=== PATIENT | male | born 1985 | race Caucasian/White ===

== ENCOUNTER 2022-02-04 15:23 | Emergency (ER) | payer OTHER, SELFPAY ==
[2022-02-04 15:25] VITALS: BP 149/93; PULSE 96; RESP 16; TEMP 36.6; O2SAT 97; BMI 40.6
--- NOTE | 2022-02-04 16:20 | ED.GENADULT ---
HPI - General Adult General Chief complaint: Back Pain/Injury Stated complaint: Sciatic Pain Time Seen by Provider: 02/04/22 16:15 Source: patient Mode of arrival: ambulatory Limitations: no limitations History of Present Illness HPI narrative: 36 yold malel presents to the ED for right sided sciatica exacerbation. Patient states right buttck pain radiating down right leg. Patient denies any leg swelling, redness, calf pain, fever, chills, recent trauma, or heavy lifting. patient states pmh of sciatica. patient states no improvemnt with diclofenac. patent denies any urinary/bowel incontincenc. Patient denies any dysuria, hematuria, flank pain, fever, chills, abdominal pain, nausea, vomiting, testicular pain, penile lesions, or penile discharge Related Data Previous Rx's Medication Instructions Recorded lidocaine 4 % topical patch 1 patch topical DAILY PRN pain #10 02/04/22 ea oxycodone 5 mg capsule 5 mg PO Q8H PRN pain 3 days #9 caps 02/04/22 prednisone 20 mg tablet 40 mg PO DAILY 5 days #10 tabs 02/04/22 Allergies Allergy/AdvReac Type Severity Reaction Status Date / Time No Known Allergies Allergy Verified 02/04/22 15:29 Review of Systems Review of Systems: sciatica pain Yes all other systems are reviewed and are negative PMFSH Social History Social History Advance Directives: No Advance Directives Information Provided: No Physical Exam ED Vital Signs: Vital Signs - 24 hr 02/04/22 15:25 Temperature 97.9 F Pulse Rate 96 Respiratory Rate 16 Blood Pressure 149/93 H Pulse Oximetry 97 Oxygen Delivery Method Room Air BMI result Body Mass Index 40.6 Const General: cooperative, healthy appearing, comfortable, no acute distress, well developed, alert and awake Orientation/consciousness: oriented to person, oriented to place, oriented to time and patient oriented x3 HENMT Head: Yes normal to inspection, Yes No palpable skull fracture present, Yes normocephalic, Yes atraumatic and No abrasion Eyes General: appearance normal, both eyes and all related structures Neck Neck: Yes normal visual inspection, Yes full ROM, Yes no lymphadenopathy, Yes no meningeal signs, Yes trachea midline, Yes supple, No anterior neck swelling and No tender Chest Chest palpation & inspection: normal inspection of the chest and normal palpation of entire chest wall Resp Effort & Inspection: normal respiratory effort and able to speak in complete sentences Auscultation: clear to auscultation bilaterally Cardio Jugular venous distension: no JVD Heart sounds: S1 normal heart sound present and S2 normal heart sound present GI Inspection: Yes normal to inspection and No abdominal wall ecchymosis Palpation (GI): Soft to palpation, not firm, nontender, no guarding and not rigid General: No CVA tenderness and Yes no CVA tenderness Back/Spine/Pelvis Other: positive for Right buttock sciatica tenderness radiating down right leg. Positive for pain when lifting right leg. right buttock negative for erythema, swelling, pus discharge Back: no CVA tenderness, No CVA tenderness and No back tenderness Skin General skin exam: no rashes or lesions noted and elasticity normal Neuro General: oriented to person, oriented to place, oriented to time, patient oriented x3, gait normal, tone normal, moves all extremities and no meningeal signs Cranial nerves: Yes CN's II-XII intact bilaterally Psych Appearance: grossly normal, well kempt and not disheveled Course Course Course Narrative: toradol and prednisone ordered Reevaluation(s) Reevaluation #1: Patient feels better after receving pain meds. Patietn not in distress. No spine tenderness. no imaging indicated. no risk factors for epidural abscess or cauda equina syndrome. NOt suspecting epidural abscess or cauda equina sydnrome Discharge Plan Discharge Clinical Impression: Sciatica Patient Disposition: Home, Self-Care Instructions: Sciatica (ED) Additional Instructions: Return to the ED immediately for any urinary/bowel incontnence, abdominal pain, nuasea, vomitting, worsening back pain, fever, chills, or any other concerning sytmpoms,. Please follow up with PCP. Prescriptions: New prednisone 20 mg tablet 40 mg PO DAILY 5 Days Qty: 10 0RF oxycodone 5 mg capsule 5 mg PO Q8H PRN (Reason: pain) 3 Days Qty: 9 0RF Rx Instructions: Partial Fill upon patient request. lidocaine 4 % adhesive patch,medicated 1 patch topical DAILY PRN (Reason: pain) Qty: 10 0RF Rx Instructions: placed on painful area Stand Alone Forms: Work/School Release Interventions: ED Discharge Assessment Last Done: 02/04/22 17:53 Discharge Date/Time: 02/04/22 17:53 Print Language: [place]
[2022-02-04] MEDS: predniSONE 20 MG TABLET 60 MG PO (16:47)
[2022-02-04] MEDS: Ketorolac Tromethamine 30 MG/ML VIAL IM (16:47)
== END 2022-02-04 17:53 | disposition home or self-care (01) ==
PROVIDERS: Emergency Provider Emergency Medicine
DX: M54.31 Sciatica, right side (principal)
CPT/HCPCS: 96372; 99283; 99284; J1885

== ENCOUNTER 2022-07-11 18:06 | Emergency (ER) | payer OTHER, SELFPAY ==
--- NOTE | 2022-07-11 | ECG_ITS ---
Test Reason : CHEST PAIN Blood Pressure : / mmHG Vent. Rate : 087 BPM Atrial Rate : 087 BPM P-R Int : 154 ms QRS Dur : 080 ms QT Int : 348 ms P-R-T Axes : 040 000 008 degrees QTc Int : 418 ms Normal sinus rhythm with sinus arrhythmia Minimal voltage criteria for LVH, may be normal variant ( R in aVL ) Nonspecific T wave abnormality Abnormal ECG No previous ECGs available Referred By: Generic ED Physician Electronically Signed By:EMANI SANCHEZ
--- NOTE | ~2022-07-11 | XR_ITS ---
EXAMINATION: XR CHEST CLINICAL INFORMATION: Chest pain COMPARISON: None TECHNIQUE: 2 views of the chest were obtained. FINDINGS: No significant abnormality is noted involving the heart, lungs, mediastinum, bony thorax or soft tissues. XR/XR chest 2V IMPRESSION: Unremarkable examination.
[2022-07-11 19:15] VITALS: BP 155/93; PULSE 92; RESP 16; TEMP 37; O2SAT 99; BMI 36.9
--- NOTE | 2022-07-11 19:16 | ED_ITS ---
HPI - Chest Pain General Chief Complaint: Chest Pain <Rica Duke NP - Last Filed: 07/11/22 19:20> Stated Complaint: Chest Pain/ uncontrolled blood pressure <Rica Duke NP - Last Filed: 07/11/22 19:20> Time Seen by Provider: 07/11/22 19:47 <Rica Duke NP - Last Filed: 07/11/22 19:20> Source: patient <Joshua Diamond MD - Last Filed: 07/11/22 21:08> Mode of arrival: ambulatory <Joshua Diamond MD - Last Filed: 07/11/22 21:08> Limitations: no limitations <Joshua Diamond MD - Last Filed: 07/11/22 21:08> History of Present Illness HPI narrative: Patient has stable hypertension with multiple complaints going on for last few weeks or eats about blood pressure fluctuating describe dizziness is nonspecific no lightheadedness no spinning movement whole-body complaints has appointment with PCP tomorrow PCP increased the dose of losartan from 50 to 100 mg 4 weeks ago denies any anxiety no sleep apnea feels palpitations sometimes <Joshua Diamond MD - Last Filed: 07/11/22 21:08> Related Data Home Medications: Previous Rx's Medication Instructions Recorded lidocaine 4 % topical patch 1 patch topical DAILY PRN pain #10 02/04/22 ea oxycodone 5 mg capsule 5 mg PO Q8H PRN pain 3 days #9 caps 02/04/22 prednisone 20 mg tablet 40 mg PO DAILY 5 days #10 tabs 02/04/22 <Rica Duke NP - Last Filed: 07/11/22 19:20> Allergies/Adverse Reactions: Allergies Allergy/AdvReac Type Severity Reaction Status Date / Time No Known Allergies Allergy Verified 02/04/22 15:29 <Rica Duke NP - Last Filed: 07/11/22 19:20> Review of Systems Review of Systems: Yes all other systems are reviewed and are negative <Joshua Diamond MD - Last Filed: 07/11/22 21:08> PMF Social History Social History: Social History Advance Directives: No Advance Directives Information Provided: No <Rica Duke NP - Last Filed: 07/11/22 19:20> Physical Exam Vital Signs: Vital Signs: Last Vital Signs Temp 98.6 F 07/11/22 19:15 Pulse 92 07/11/22 20:37 Resp 16 07/11/22 20:37 BP 147/82 H 07/11/22 20:37 Pulse Ox 98 07/11/22 20:37 O2 Del Method 07/11/22 20:37 BMI result Body Mass Index 36.9 <Rica Duke NP - Last Filed: 07/11/22 19:20> Vital Signs: Last Vital Signs Temp 98.6 F 07/11/22 19:15 Pulse 92 07/11/22 20:37 Resp 16 07/11/22 20:37 BP 147/82 H 07/11/22 20:37 Pulse Ox 98 07/11/22 20:37 O2 Del Method 07/11/22 20:37 BMI result Body Mass Index 36.9 <Joshua Diamond MD - Last Filed: 07/11/22 21:08> Appearance: Alert. Oriented X3. No acute distress. Anxious Eyes: No pallor or icterus ENT: Pharynx normal. Oral Mucosa moist Neck: Normal inspection. Neck supple. CVS: Normal heart rate and rhythm. Pulses normal. No murmur or rub Respiratory: No respiratory distress. Equal air entry bilateral, no wheezing/rales/rhonchi Abdomen: Soft and nontender. Bowel sounds are present, no mass palpable, no CVA tenderness Skin: Skin warm and dry. Normal skin color. Normal skin turgor. Extremities: No lower extremity edema. No calf tenderness Neuro: Oriented X 3. No motor deficit. No sensory deficit.No cerebellar signs , cranial nerves II-XII intact <Joshua Diamond MD - Last Filed: 07/11/22 21:08> Course Course Course Narrative: This is rapid medical exam. Deferred HPI, ROS, PE to primary provider. 37 yo male with history of HTN here with complaints of intermittent numbness with radiation to arm, chest pain, dizzy episodes 4 times in the last 2 weeks. Will check EKG, CXR, labs. BP 155/93 in triage. VSS. <Rica Duke NP - Last Filed: 07/11/22 19:20> Medical Decision Making Medical Decision Making MDM Narrative: Patient with multiple nonspecific complaints orthostatic blood pressure was normal has appointment to see PCP tomorrow will do basic labs and advised to follow with PCP <Joshua Diamond MD - Last Filed: 07/11/22 21:08> Lab Data Result Diagrams: : 07/11/22 19:56 07/11/22 19:56 <Rica Duke NP - Last Filed: 07/11/22 19:20> Labs: Lab Results 07/11/22 07/11/22 07/11/22 Range/Units 19:56 19:56 19:56 WBC 12.1 H (4.8-10.8) X10*3/uL RBC 4.94 (4.60-5.80) X10*6/uL Hgb 13.3 L (14.0-18.0) g/dl Hct 37.9 L (42.0-52.0) % MCV 76.7 L (80.0-98.0) fL MCH 26.9 L (27.0-33.0) pg MCHC 35.1 (31.0-36.0) g/dl RDW 12.6 (11.0-16.0) % Plt Count 285 (160-400) X10*3/uL MPV 8.8 L (9.4-12.4) fL Immature Gran % (Auto) 0.2 (0.0-0.4) % Neut % (Auto) 61.0 (45-73) % Lymph % (Auto) 32.7 (20-40) % [place] % (Auto) 4.5 (2-11) % Eos % (Auto) 1.3 (0-4) % Baso % (Auto) 0.3 (0-2) % Lymph # (Auto) 4.0 (1.2-4.9) X10*3/uL [place] # (Auto) 0.5 (0.1-1.2) X10*3/uL Eos # (Auto) 0.2 (0.0-0.4) X10*3/uL Baso # (Auto) 0.0 (0.0-0.2) X10*3/uL Abs Immat Gran (auto) 0.03 (0.00-0.03) X10*3/uL Absolute Neuts (auto) 7.4 (2.0-8.3) x10*3/uL Absolute Nucleated RBC 0.000 (0.0-0.012) X10*3/uL Nucleated RBC % (auto) 0.0 (0.0-0.2) /100WBC Sodium 141 (135-145) mmol/L Potassium 4.1 (3.3-5.1) mmol/L Chloride 103 (96-108) mmol/L Carbon Dioxide 25 (22-29) mmol/L Anion Gap 17 (12-20) BUN 13 (9-16) mg/dL Creatinine 0.82 (0.5-1.4) mg/dL Estim Creat Clear Calc 154.6 Estimated GFR > 60 Random Glucose 201 H (60-115) mg/dL Calcium 9.8 (8.4-10.2) mg/dL Total Bilirubin 1.0 (0.0-1.0) mg/dL Direct Bilirubin 0.3 (0.0-0.5) mg/dL AST 25 (5-37) U/L ALT 41 H (0-40) U/L Alkaline Phosphatase 75 (39-117) U/L Troponin I High Sens < 3.5 (<3.5-35.0) ng/L Total Protein 7.5 (6.5-8.0) g/dL Albumin 4.6 (3.5-5.0) g/dL COVID-19 (FRANKIE) (Negative) COVID-19 Clin Com 07/11/22 Range/Units 19:56 WBC (4.8-10.8) X10*3/uL RBC (4.60-5.80) X10*6/uL Hgb (14.0-18.0) g/dl Hct (42.0-52.0) % MCV (80.0-98.0) fL MCH (27.0-33.0) pg MCHC (31.0-36.0) g/dl RDW (11.0-16.0) % Plt Count (160-400) X10*3/uL MPV (9.4-12.4) fL Immature Gran % (Auto) (0.0-0.4) % Neut % (Auto) (45-73) % Lymph % (Auto) (20-40) % [place] % (Auto) (2-11) % Eos % (Auto) (0-4) % Baso % (Auto) (0-2) % Lymph # (Auto) (1.2-4.9) X10*3/uL [place] # (Auto) (0.1-1.2) X10*3/uL Eos # (Auto) (0.0-0.4) X10*3/uL Baso # (Auto) (0.0-0.2) X10*3/uL Abs Immat Gran (auto) (0.00-0.03) X10*3/uL Absolute Neuts (auto) (2.0-8.3) x10*3/uL Absolute Nucleated RBC (0.0-0.012) X10*3/uL Nucleated RBC % (auto) (0.0-0.2) /100WBC Sodium (135-145) mmol/L Potassium (3.3-5.1) mmol/L Chloride (96-108) mmol/L Carbon Dioxide (22-29) mmol/L Anion Gap (12-20) BUN (9-16) mg/dL Creatinine (0.5-1.4) mg/dL Estim Creat Clear Calc Estimated GFR Random Glucose (60-115) mg/dL Calcium (8.4-10.2) mg/dL Total Bilirubin (0.0-1.0) mg/dL Direct Bilirubin (0.0-0.5) mg/dL AST (5-37) U/L ALT (0-40) U/L Alkaline Phosphatase (39-117) U/L Troponin I High Sens (<3.5-35.0) ng/L Total Protein (6.5-8.0) g/dL Albumin (3.5-5.0) g/dL COVID-19 (FRANKIE) Negative (Negative) COVID-19 Clin Com See Note <Rica Duke, KING - Last Filed: 07/11/22 19:20> Lab Results 12/14/22 12/14/22 12/14/22 Range/Units 19:56 19:56 19:56 WBC 12.1 H (4.8-10.8) X10*3/uL RBC 4.94 (4.60-5.80) X10*6/uL Hgb 13.3 L (14.0-18.0) g/dl Hct 37.9 L (42.0-52.0) % MCV 76.7 L (80.0-98.0) fL MCH 26.9 L (27.0-33.0) pg MCHC 35.1 (31.0-36.0) g/dl RDW 12.6 (11.0-16.0) % Plt Count 285 (160-400) X10*3/uL MPV 8.8 L (9.4-12.4) fL Immature Gran % (Auto) 0.2 (0.0-0.4) % Neut % (Auto) 61.0 (45-73) % Lymph % (Auto) 32.7 (20-40) % [place] % (Auto) 4.5 (2-11) % Eos % (Auto) 1.3 (0-4) % Baso % (Auto) 0.3 (0-2) % Lymph # (Auto) 4.0 (1.2-4.9) X10*3/uL [place] # (Auto) 0.5 (0.1-1.2) X10*3/uL Eos # (Auto) 0.2 (0.0-0.4) X10*3/uL Baso # (Auto) 0.0 (0.0-0.2) X10*3/uL Abs Immat Gran (auto) 0.03 (0.00-0.03) X10*3/uL Absolute Neuts (auto) 7.4 (2.0-8.3) x10*3/uL Absolute Nucleated RBC 0.000 (0.0-0.012) X10*3/uL Nucleated RBC % (auto) 0.0 (0.0-0.2) /100WBC Sodium 141 (135-145) mmol/L Potassium 4.1 (3.3-5.1) mmol/L Chloride 103 (96-108) mmol/L Carbon Dioxide 25 (22-29) mmol/L Anion Gap 17 (12-20) BUN 13 (9-16) mg/dL Creatinine 0.82 (0.5-1.4) mg/dL Estim Creat Clear Calc 154.6 Estimated GFR > 60 Random Glucose 201 H (60-115) mg/dL Calcium 9.8 (8.4-10.2) mg/dL Total Bilirubin 1.0 (0.0-1.0) mg/dL Direct Bilirubin 0.3 (0.0-0.5) mg/dL AST 25 (5-37) U/L ALT 41 H (0-40) U/L Alkaline Phosphatase 75 (39-117) U/L Troponin I High Sens < 3.5 (<3.5-35.0) ng/L Total Protein 7.5 (6.5-8.0) g/dL Albumin 4.6 (3.5-5.0) g/dL COVID-19 (FRANKIE) (Negative) COVID-19 Clin Com 07/11/22 Range/Units 19:56 WBC (4.8-10.8) X10*3/uL RBC (4.60-5.80) X10*6/uL Hgb (14.0-18.0) g/dl Hct (42.0-52.0) % MCV (80.0-98.0) fL MCH (27.0-33.0) pg MCHC (31.0-36.0) g/dl RDW (11.0-16.0) % Plt Count (160-400) X10*3/uL MPV (9.4-12.4) fL Immature Gran % (Auto) (0.0-0.4) % Neut % (Auto) (45-73) % Lymph % (Auto) (20-40) % [place] % (Auto) (2-11) % Eos % (Auto) (0-4) % Baso % (Auto) (0-2) % Lymph # (Auto) (1.2-4.9) X10*3/uL [place] # (Auto) (0.1-1.2) X10*3/uL Eos # (Auto) (0.0-0.4) X10*3/uL Baso # (Auto) (0.0-0.2) X10*3/uL Abs Immat Gran (auto) (0.00-0.03) X10*3/uL Absolute Neuts (auto) (2.0-8.3) x10*3/uL Absolute Nucleated RBC (0.0-0.012) X10*3/uL Nucleated RBC % (auto) (0.0-0.2) /100WBC Sodium (135-145) mmol/L Potassium (3.3-5.1) mmol/L Chloride (96-108) mmol/L Carbon Dioxide (22-29) mmol/L Anion Gap (12-20) BUN (9-16) mg/dL Creatinine (0.5-1.4) mg/dL Estim Creat Clear Calc Estimated GFR Random Glucose (60-115) mg/dL Calcium (8.4-10.2) mg/dL Total Bilirubin (0.0-1.0) mg/dL Direct Bilirubin (0.0-0.5) mg/dL AST (5-37) U/L ALT (0-40) U/L Alkaline Phosphatase (39-117) U/L Troponin I High Sens (<3.5-35.0) ng/L Total Protein (6.5-8.0) g/dL Albumin (3.5-5.0) g/dL COVID-19 (FRANKIE) Negative (Negative) COVID-19 Clin Com See Note <Joshua Diamond MD - Last Filed: 07/11/22 21:08> Independent Interpretation I performed an independent interpretation of an: EKG <Joshua Diamond MD - Last Filed: 07/11/22 21:08> Interpretation: Normal sinus rhythm heart rate 87 beats per minute LVH nonspecific T-wave changes no acute ischemia <Joshua Diamond MD - Last Filed: 07/11/22 21:08> Discharge Plan Discharge Clinical Impression: Hypertension <Rica Duke NP - Last Filed: 07/11/22 19:20> Patient Disposition: Home, Self-Care <Rica Duke NP - Last Filed: 07/11/22 19:20> Instructions: Chronic Hypertension (ED), Anxiety (ED) <Rica Duke NP - Last Filed: 07/11/22 19:20> Additional Instructions: Continue taking medications as prescribed by PCP and see your PCP tomorrow as scheduled for further evaluation <Rica Duke NP - Last Filed: 07/11/22 19:20> Prescriptions: No Action prednisone 20 mg tablet 40 mg PO DAILY 5 Days Qty: 10 0RF oxycodone 5 mg capsule 5 mg PO Q8H PRN (Reason: pain) 3 Days Qty: 9 0RF Rx Instructions: Partial Fill upon patient request. lidocaine 4 % adhesive patch,medicated 1 patch topical DAILY PRN (Reason: pain) Qty: 10 0RF Rx Instructions: placed on painful area <Rica Duke NP - Last Filed: 07/11/22 19:20>
[2022-07-11 20:02] LABS: MANUAL DIFF FLAG NO
[2022-07-11 20:03] LABS: Basophils Percent Auto 0.3 % (0-2); Eosinophils Absolute Auto 0.2 X10*3/uL (0.0-0.4); Eosinophils Percent Auto 1.3 % (0-4); Hematocrit 37.9 % (42.0-52.0); Hemoglobin 13.3 g/dl (14.0-18.0); Imm Gran Abs Auto 0.03 X10*3/uL (0.00-0.03); Imm Gran Pct Auto 0.2 % (0.0-0.4); Lymphocytes Percent Auto 32.7 % (20-40); Mean Corpuscular HGB Conc 35.1 g/dl (31.0-36.0); Mean Corpuscular Hemoglobin 26.9 pg (27.0-33.0); Mean Corpuscular Volume 76.7 fL (80.0-98.0); Mean Platelet Volume 8.8 fL (9.4-12.4); Monocytes Absolute Auto 0.5 X10*3/uL (0.1-1.2); Monocytes Percent Auto 4.5 % (2-11); Neutrophils Absolute Auto 7.4 x10*3/uL (2.0-8.3); Platelet Count 285 X10*3/uL (160-400); Red Blood Count 4.94 X10*6/uL (4.60-5.80); Red Cell Distribution Width 12.6 % (11.0-16.0); White Blood Count 12.1 X10*3/uL (4.8-10.8)
--- OUTSIDE RECORDS SUMMARY | 2022-07-11 20:07 | XMS_ITS | Continuity of Care Document ---
:1985 Author Organization [facility] Address [address] [place] [address]- Care Team Providers Name Role Phone Not on Staff, PCP Primary Care Physician Unavailable Encounter [facility] [place](s): 04/11/21 - 05/17/21 [facility] [address] [address] Attending Physician: Venecia MALIK, Darion Mcguire Admitting Physician: Venecia MALIK, Darion Mcguire Referring Physician: Venecia MALIK, Darion Mcguire Allergies, Adverse Reactions, Alerts Substance Reaction Severity Status NKA Active Medications albuterol CFC free 90 mcg/inh inhalation aerosol 2, puffs, Inhalation, Every 4 hours, PRN, # 1 each, Refills 0, Tot. Refills 0, Maintenance, 10/14/1909:25:59 EDT, Aerosol, Route to Pharmacy Electronically, [id number], [facility]/pharmacy #[id number], Compound Start Date: 10/14/18 Status: Orderedalbuterol CFC free 90 mcg/inh inhalation aerosol 2 puffs, Inhalation, 4 times a day, PRN for wheezing, # 75 Gm, 0 Refills, Maintenance, 10/16/13 1:32:01, Aerosol Start Date: 10/16/13 Status: Orderedazithromycin 250 mg oral tablet 1 tablet = 250 mg, By Mouth, Daily, begin tomorrow, # 4 tablet, 0 Refills, Maintenance, 10/16/13 1:32:10, Tablet Start Date: 10/16/13 Stop Date: 10/20/13 Status: Orderedazithromycin 250 mg oral tablet 1 pack/packet, By Mouth, Once, # 6 tablet, 0 Refills, Soft Stop, 10/30/18 19:50:38 EDT, Tablet Start Date: 10/30/18 Status: Orderedfluticasone CFC free 220 mcg/inh inhalation aerosol 2 puffs, Inhalation, 2 times a day, # 12 Gm, 0 Refills, Maintenance, 10/30/18 19:50:27 EDT, Aerosol Start Date: 10/30/18 Status: OrderedRobitussin-AC 10 mg-100 mg/5 ml oral syrup 10 mL, By Mouth, Every 4 hours, PRN for cough, # 80 mL, 0 Refills, Maintenance, 10/16/13 1:32:06, Syrup Start Date: 10/16/13 Status: Ordered Social History Social History Type Response Sex Male
--- OUTSIDE RECORDS SUMMARY | 2022-07-11 20:07 | XMS_ITS | Continuity of Care Document ---
:1985 Author Organization [facility] Address [address] [place] [address]- Care Team Providers Name Role Phone Not on Staff, PCP Primary Care Physician Unavailable Encounter [facility] [place] Date(s): 04/17/21 - 05/17/21 [facility] [address] [address] Attending Physician: AdmGilles hsu Admitting Physician: Admtr, Ar8 Referring Physician: Admtr, Ar8 Allergies, Adverse Reactions, Alerts Substance Reaction Severity Status NKA Active Medications albuterol CFC free 90 mcg/inh inhalation aerosol 2, puffs, Inhalation, Every 4 hours, PRN, # 1 each, Refills 0, Tot. Refills 0, Maintenance, 10/14/1909:25:59 EDT, Aerosol, Route to Pharmacy Electronically, [id number], [facility]/pharmacy #[id number], Compound Start Date: 10/14/18 Status: Orderedalbuterol [...]
--- OUTSIDE RECORDS SUMMARY | 2022-07-11 20:07 | XMS_ITS | Continuity of Care Document ---
:1985 Author Organization [facility] Address [address] [place] [address]- Care Team Providers Name Role Phone Not on Staff, PCP Primary Care Physician Unavailable Encounter [facility] [place] Date(s): 08/12/19 - 08/22/19 [facility] [address] [place] [address]- [facility] Attending Physician: Gilles Lala Admitting Physician: AdmtrGilels Referring Physician: Admtr, Ar8 Allergies, Adverse Reactions, Alerts Substance Reaction Severity Status NKA Active Medications albuterol CFC free 90 mcg/inh inhalation aerosol 2, puffs, Inhalation, Every 4 hours, PRN, # 1 each, Refills 0, Tot. Refills 0, Maintenance, 10/14/1909:25:59 EDT, Aerosol, Route to Pharmacy Electronically, [id number], [facility]/pharmacy #[id number], Compound Start Date: 10/14/18 Status: Orderedalbuterol [...]
--- OUTSIDE RECORDS SUMMARY | 2022-07-11 20:07 | XMS_ITS | Continuity of Care Document ---
:1985 Author Organization [facility] Address [address] [place] [address]- Care Team Providers Name Role Phone Not on Staff, PCP Primary Care Physician Unavailable Encounter [facility] [place] Date(s): 08/12/19 - 08/19/19 [facility] [address] [place] [address]- [facility] Encounter Diagnosis Acute bronchitis (Discharge Diagnosis) - 08/12/19 Attending Physician: Nora ZHANG, Floyd Allen Allergies, Adverse Reactions, Alerts Substance Reaction Severity Status NKA Active Medications albuterol CFC free 90 mcg/inh inhalation aerosol 2, puffs, Inhalation, Every 4 hours, PRN, # 1 each, Refills 0, Tot. Refills 0, Maintenance, 10/14/1909:25:59 EDT, Aerosol, Route to Pharmacy Electronically, [id number], [facility]/pharmacy #[id number], Compound Start Date: 10/14/18 Status: Orderedalbuterol [...] 1:32:06, Syrup Start Date: 10/16/13 Status: Ordered Problem List Diagnosis Diagnosis Type Effective Dates Health Clinical Infor [facility] Status Service Acute bronchitis Discharge 08/12/19 Diagnosis Vital Signs Most recent to oldest [Reference Range]: 1 Oxygen Saturation [94-100 %] 100 % (08/12/19 10:24 AM) Pulse Rate [55-90 bpm] 94 bpm *H* (08/12/19 10:24 AM) Blood Pressure [90-138/55-84 mm Hg] 149/85 mm Hg *H* (08/12/19 10:24 AM) Respiratory Rate [16-30 br/min] 18 br/min (08/12/19 10:24 AM) Temperature [96.8-100.4 DegF] 98.4 DegF (08/12/19 10:24 AM) Mode of Delivery (Oxygen) Room air (08/12/19 10:24 AM) Blood pressure sites Arm, right (08/12/19 10:24 AM) Temperature Route Oral (08/12/19 10:24 AM) Dry Weight 131.0 kg (08/12/19 10:24 AM) Dry Weight Obtained Via Standing scale (08/12/19 10:24 AM) Social History Social History Type Response Sex Male
--- OUTSIDE RECORDS SUMMARY | 2022-07-11 20:07 | XMS_ITS | Continuity of Care Document ---
:1985 Author Organization [facility] Address [address] [place] [address]- Care Team Providers Name Role Phone Venecia MLAIK, Darion Mcguire Primary Care Physician [phone] Encounter [facility] [place](s): 05/25/22 - 06/24/22 [facility] [address] [place] [address] Allergies, Adverse Reactions, Alerts No Known Allergies Medications albuterol CFC free 90 mcg/inh inhalation aerosol 2, puffs, Inhalation, Every 4 hours, PRN, # 1 each, Refills 0, Tot. Refills 0, Maintenance, 10/14/1909:25:59 EDT, Aerosol, Route to Pharmacy Electronically, [id number], [facility]/pharmacy #[id number], Compound Start Date: 10/14/18 Status: [...] History Social History Type Response Sex Male Patient Care team information Care Team PersonnelName: Venecia MALIK, Darion Mcguire Position: Reference Physician Member Role: PCP Address: Address: [address] [place] [address]- Care Team Related PersonsName: ROBIN AGUILAR Address: home [address] [place] [address]
[2022-07-11 20:18] LABS: Alanine Aminotransferase 41 U/L (0-40); Albumin Level 4.6 g/dL (3.5-5.0); Alkaline Phosphatase 75 U/L (39-117); Anion Gap 17 (12-20); Aspartate Amino Transferase 25 U/L (5-37); Bilirubin Direct 0.3 mg/dL (0.0-0.5); Blood Urea Nitrogen 13 mg/dL (9-16); Calcium 9.8 mg/dL (8.4-10.2); Carbon Dioxide 25 mmol/L (22-29); Chloride 103 mmol/L (96-108); Creatinine Clr Calc Pharmacy 154.6; Estimated Glomerular Filt Rate > 60; Glucose Random 201 mg/dL (60-115); Potassium 4.1 mmol/L (3.3-5.1); Sodium 141 mmol/L (135-145); Total Protein 7.5 g/dL (6.5-8.0)
[2022-07-11 20:21] LABS: COVID-19 Test Negative (Negative)
[2022-07-11 20:24] LABS: Troponin-I High Sensitivity < 3.5 ng/L (<3.5-35.0)
[2022-07-11 20:37] VITALS: BP 147/82; PULSE 92; RESP 16; O2SAT 98
== END 2022-07-11 21:09 | disposition home or self-care (01) ==
PROVIDERS: Nurse Practitioner Family; Emergency Provider Internal Medicine
DX: I10 Essential (primary) hypertension (principal); R07.9 Chest pain, unspecified; Z20.822 Contact with and (suspected) exposure to COVID-19
CPT/HCPCS: 71046; 80048; 80076; 84484; 85025; 87635; 93005; 99283; 99284